=== PATIENT | male | born 1985 | race African-American/Black ===

== ENCOUNTER 2016-11-08 11:37 | Emergency (ER) | payer MEDICAID ==
[~2016-11-08] VITALS: Ht 188 cm; Wt 77.6 kg
[~2016-11-08 11:37] MED LIST: OLAN5TAB3 PO
[2016-11-08 11:41] VITALS: BP 130/61
[2016-11-08] MEDS ORDERED: PROCHLORPERAZINE 5 MG/ML, 2ML IVPush ONE (13:00)
[2016-11-08] MEDS ORDERED: KETOROLAC 30 MG/1 ML IVPush ONE (13:00)
[2016-11-08] MEDS ORDERED: DIPHENHYDRAMINE 50 MG/ML, 1ML IVPush ONE (13:00)
[2016-11-08] MEDS ORDERED: SODIUM CHLORIDE FLUSH 10ML SYR IVF ONE (13:00)
[2016-11-08] MEDS ORDERED: SODIUM CHLORIDE 0.9% 1,000ML IVBOLUS ONE (13:00)
== END 2016-11-08 15:17 | disposition left against medical advice (07) ==
LOC: ED 15:11
DX: R51 Headache (principal); Z53.21 Procedure and treatment not carried out due to patient leaving prior to being seen by health care provider
CPT/HCPCS: 93005; 99281

== ENCOUNTER 2017-02-28 11:05 | Emergency (ER) | payer MEDICAID ==
[~2017-02-28] VITALS: Ht 188 cm; Wt 82.0 kg
[2017-02-28 11:20] VITALS: BP 110/45
== END 2017-02-28 12:22 | disposition home or self-care (01) ==
LOC: ED 12:00
DX: S66.911A Strain of unspecified muscle, fascia and tendon at wrist and hand level, right hand, initial encounter (principal); X58.XXXA Exposure to other specified factors, initial encounter; Y93.89 Activity, other specified; Y92.89 Other specified places as the place of occurrence of the external cause; Y99.9 Unspecified external cause status
CPT/HCPCS: 29125; 99284

== ENCOUNTER 2017-03-11 07:34 | Emergency (ER) | payer MEDICAID ==
[~2017-03-11] VITALS: Ht 193 cm; Wt 75.0 kg
[2017-03-11] MEDS ORDERED: DIPHENHYDRAMINE 50 MG/ML, 1ML IVPush ONE (08:00)
[2017-03-11] MEDS ORDERED: SODIUM CHLORIDE 0.9% 1,000ML IVBOLUS ONE (08:00)
[2017-03-11] MEDS ORDERED: METOCLOPRAMIDE 5 MG/ML, 2ML IVPush ONE (08:00)
[2017-03-11] MEDS ORDERED: SODIUM CHLORIDE FLUSH 10ML SYR IVF ONE (08:00)
[2017-03-11] MEDS ORDERED: KETOROLAC 30 MG/1 ML IVPush ONE (08:00)
[2017-03-11] MEDS ORDERED: DIPHENHYDRAMINE 50 MG/ML, 1ML ONE (08:06)
[2017-03-11] MEDS ORDERED: KETOROLAC 30 MG/1 ML ONE (08:06)
[2017-03-11] MEDS ORDERED: METOCLOPRAMIDE 5 MG/ML, 2ML ONE (08:06)
[2017-03-11 08:47] LABS: HEMATOCRIT 43.1 % (39.2-51.8); HEMOGLOBIN 14.6 g/dL (13.7-18.0); WHITE BLOOD COUNT 6.7 x10^3/uL (3.4-10)
[2017-03-11 09:02] LABS: BLOOD UREA NITROGEN 11 mg/dL (7-18)
[2017-03-11 09:06] LABS: IS PT STATUS REG ER OR PRE ER? YES
[2017-03-11 10:48] VITALS: BP 106/43
== END 2017-03-11 10:50 | disposition home or self-care (01) ==
LOC: ED 09:18
DX: S00.03XA Contusion of scalp, initial encounter (principal); R55 Syncope and collapse; J45.909 Unspecified asthma, uncomplicated; X58.XXXA Exposure to other specified factors, initial encounter; Y93.89 Activity, other specified; Y92.89 Other specified places as the place of occurrence of the external cause; Y99.8 Other external cause status
CPT/HCPCS: 36415; 70450; 71010; 80048; 82040; 84484; 85025; 93005; 96361; 96374; 96375; 99285; J1200; J1885; J2765; J7030

== ENCOUNTER 2018-07-27 14:58 | Emergency (ER) | payer MEDICAID ==
[~2018-07-27] VITALS: Ht 188 cm; Wt 90.3 kg
[2018-07-27 15:14] VITALS: BP 118/60
--- NOTE | 2018-07-27 15:43 | NUR ---
Patient/Caregiver given discharge instructions and they have confirmed that they understand the instructions. Patient ambulatory with steady gait.
== END 2018-07-27 15:45 | disposition home or self-care (01) ==
LOC: ED 15:25
DX: J00 Acute nasopharyngitis [common cold] (principal); J45.909 Unspecified asthma, uncomplicated; Z87.891 Personal history of nicotine dependence
CPT/HCPCS: 99283

== ENCOUNTER 2018-10-16 02:38 | Emergency (ER) | payer MEDICAID ==
[2018-10-16 02:45] VITALS: BP 113/42
--- NOTE | 2018-10-16 02:49 | NUR ---
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
[2018-10-16] MEDS ORDERED: IBUPROFEN 200 MG TABLET ONE (02:52)
[2018-10-16] MEDS ORDERED: ACETAMINOPHEN 500 MG TABLET ONE (02:52)
[2018-10-16] MEDS ORDERED: IBUPROFEN 600 MG TABLET ONE (02:53)
[2018-10-16] MEDS ORDERED: IBUPROFEN 600 MG TABLET PO ONE (03:00)
[2018-10-16] MEDS ORDERED: ACETAMINOPHEN 500 MG TABLET PO ONE (03:00)
--- NOTE | 2018-10-16 03:25 | NUR ---
given dc instruction with work note pt understood pt up ambulated to check out
== END 2018-10-16 03:27 | disposition home or self-care (01) ==
LOC: ED 03:25
DX: R07.89 Other chest pain (principal); J45.909 Unspecified asthma, uncomplicated; F17.200 Nicotine dependence, unspecified, uncomplicated
CPT/HCPCS: 71045; 93005; 99283

== ENCOUNTER 2018-12-03 21:47 | Emergency (ER) | payer MEDICAID ==
[~2018-12-03] VITALS: Ht 188 cm; Wt 76.8 kg
[2018-12-03 21:50] VITALS: BP 116/69
--- NOTE | 2018-12-03 22:44 | NUR ---
DC EDUCATION PROVIDED, PT DEMONSTRATES UNDERSTANDING. PT AMBULATED STEADILY TO DC WITH RN
== END 2018-12-03 22:45 | disposition home or self-care (01) ==
LOC: ED 22:39
DX: H57.89 Other specified disorders of eye and adnexa (principal); F17.210 Nicotine dependence, cigarettes, uncomplicated
CPT/HCPCS: 99283

== ENCOUNTER 2019-01-10 23:59 | Emergency (ER) | payer MEDICAID ==
[~2019-01-10] VITALS: Ht 188 cm; Wt 77.5 kg
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
--- NOTE | 2019-01-11 00:14 | NUR ---
Provider at bedside, ERICK RANDALL, pain and nausea resolved at this time, urinal provided for UA, pt to notify RN when specimen is available.
[2019-01-11] MEDS ORDERED: SODIUM CHLORIDE FLUSH 10ML SYR IVF ONE (00:30)
[2019-01-11 00:39] LABS: BASOPHILS % (AUTO) 0 % (0-1); EOSINOPHILS # (AUTO) 0.03 x10^3/uL (0-0.4); EOSINOPHILS % (AUTO) 1 % (1-7); LYMPHOCYTES # (AUTO) 0.97 x10^3/uL (1-3.4); LYMPHOCYTES % (AUTO) 17 % (22-44); MD NO; MEAN CORPUSCULAR HEMOGLOBIN 32.6 pg (27.5-34.5); MEAN CORPUSCULAR VOLUME 98.8 fL (81-97); MEAN PLATELET VOLUME 7.7 fL (7.4-10.4); MONOCYTES # (AUTO) 0.15 x10^3/uL (0.2-0.8); MONOCYTES % (AUTO) 3 % (2-9); NEUTROPHILS # (AUTO) 4.65 x10^3/uL (1.8-6.8); NEUTROPHILS % (AUTO) 80 % (42-75); PLATELET COUNT 224 x10^3/uL (130-400); RED BLOOD COUNT 4.73 x10^6/uL (4.38-5.82); RED CELL DISTRIBUTION WIDTH 16.5 % (9.4-14.8)
[2019-01-11 00:44] LABS: ALANINE AMINOTRANSFERASE 20 U/L (12-78); ALBUMIN 4.1 g/dL (3.4-5.0); ANION GAP 8 mmol/L (5-15); CALCIUM 8.7 mg/dL (8.5-10.1); CHLORIDE 108 mmol/L (98-107); CREATININE 0.93 mg/dL (0.7-1.3)
[2019-01-11 00:46] LABS: ALKALINE PHOSPHATASE 60 U/L (45-117); BILIRUBIN,TOTAL 0.7 mg/dL (0.2-1.0); TOTAL PROTEIN 7.9 g/dL (6.4-8.2)
--- NOTE | 2019-01-11 01:02 | NUR ---
Pt attempts to void, unsuccessful. notified.
--- NOTE | 2019-01-11 01:33 | NUR ---
Pt resting w/ eyes closed, arouses to voice. Unable to void, PO fluids provided, will attempt UA collection. aware.
--- NOTE | 2019-01-11 02:10 | NUR ---
Pt unable to void, provider aware. Report given to Jose MARI.
[2019-01-11] MEDS ORDERED: KETOROLAC 30 MG/1 ML ONE (02:24)
[2019-01-11] MEDS ORDERED: ONDANSETRON 2MG/ML, 2ML ONE (02:24)
[2019-01-11] MEDS ORDERED: KETOROLAC 30 MG/1 ML IVPush ONE (02:30)
[2019-01-11] MEDS ORDERED: ONDANSETRON 2MG/ML, 2ML IVPush ONE (02:30)
[2019-01-11] MEDS ORDERED: SODIUM CHLORIDE 0.9% 1,000ML IVBOLUS ONE (02:30)
--- NOTE | 2019-01-11 02:36 | NUR ---
PT ABLE TO VOID IN URINAL. SAMPLE COLLECTED AND WALKED TO LAB. ORDERED FLUIDS AND MEDS GIVEN.
[2019-01-11 02:48] LABS: MICROSCOPIC AUTO
[2019-01-11 02:50] LABS: CULTURE INDICATED? YES
[2019-01-11 04:02] VITALS: BP 102/46
== END 2019-01-11 04:21 | disposition home or self-care (01) ==
LOC: ED 01-11 00:27
DX: N13.2 Hydronephrosis with renal and ureteral calculous obstruction (principal); R31.9 Hematuria, unspecified; R11.2 Nausea with vomiting, unspecified; F17.210 Nicotine dependence, cigarettes, uncomplicated; J45.909 Unspecified asthma, uncomplicated
CPT/HCPCS: 36415; 74176; 80053; 80307; 81001; 83690; 85025; 87086; 96361; 96374; 96375; 99284; J1885; J2405; J7030

== ENCOUNTER 2019-01-24 22:24 | Emergency (ER) | payer MEDICAID ==
[~2019-01-24] VITALS: Ht 185.4 cm; Wt 74.4 kg
[2019-01-24 22:29] VITALS: BP 116/74
== END 2019-01-24 22:52 | disposition left against medical advice (07) ==
LOC: ED 22:45
DX: F41.9 Anxiety disorder, unspecified (principal); Z53.21 Procedure and treatment not carried out due to patient leaving prior to being seen by health care provider

== ENCOUNTER 2019-10-24 21:49 | Observation (INO) | payer MEDICAID ==
[~2019-10-24] VITALS: Ht 188 cm; Wt 74.0 kg
[~2019-10-24 21:49] MED LIST changes: +GABAPENTIN
--- NOTE | 2019-10-24 22:09 | NUR ---
PT AMBUALTES FROM TRIAGE TO ROOM WITH SLOW BUT STEADY GAIT WITH ASSISTANCE FROM CANE.
[2019-10-24] MEDS ORDERED: SODIUM CHLORIDE 0.9% 1,000ML IVBOLUS ONE (22:30)
[2019-10-24] MEDS ORDERED: MORPHINE SULFATE 4 MG/ML, 1ML IV PRN (22:30)
[2019-10-24] MEDS ORDERED: ONDANSETRON 2MG/ML, 2ML IVPush ONE (22:30)
[2019-10-24] MEDS ORDERED: CEFAZOLIN PMX 1GM/50ML 50 ML IVPB ONE (22:30)
[2019-10-24] MEDS ORDERED: SODIUM CHLORIDE FLUSH 10ML SYR IVF ONE (22:30)
[2019-10-24] MEDS ORDERED: VANCOMYCIN PER PHARMACY MC ONE (22:30)
[2019-10-24] MEDS ORDERED: ONDANSETRON 2MG/ML, 2ML ONE (22:46)
[2019-10-24] MEDS ORDERED: MORPHINE SULFATE 4 MG/ML, 1ML ONE (22:46)
--- NOTE | 2019-10-24 22:55 | NUR ---
LAB IN ROOM DRAWING BLOOD CULTURES
[2019-10-24] MEDS ORDERED: CEFAZOLIN PMX 1GM/50ML 50 ML ONE (22:59)
[2019-10-24] MEDS ORDERED: VANCOMYCIN 1,500 MG in SODIUM CHLORIDE 0.9% 250 ML IV ONE (23:00)
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
[2019-10-24 23:19] LABS: BASOPHILS # (AUTO) 0.03 x10^3/uL (0-0.1); BASOPHILS % (AUTO) 0 % (0-1); EOSINOPHILS # (AUTO) 0.03 x10^3/uL (0-0.4); EOSINOPHILS % (AUTO) 1 % (1-7); LYMPHOCYTES # (AUTO) 0.98 x10^3/uL (1-3.4); LYMPHOCYTES % (AUTO) 13 % (22-44); MD NO; MEAN CORPUSCULAR HEMOGLOBIN 31.6 pg (27.5-34.5); MEAN CORPUSCULAR HGB CONC 33.6 g/dL (33.2-36.2); MEAN CORPUSCULAR VOLUME 94.2 fL (81-97); MEAN PLATELET VOLUME 6.6 fL (7.4-10.4); MONOCYTES % (AUTO) 4 % (2-9); NEUTROPHILS # (AUTO) 6.28 x10^3/uL (1.8-6.8); NEUTROPHILS % (AUTO) 82 % (42-75); PLATELET COUNT 523 x10^3/uL (130-400); RED BLOOD COUNT 3.57 x10^6/uL (4.38-5.82); RED CELL DISTRIBUTION WIDTH 15.6 % (9.4-14.8)
[2019-10-24 23:22] LABS: ALBUMIN 3.6 g/dL (3.4-5.0); ANION GAP 7 mmol/L (5-15); C-REACTIVE PROTEIN, QUANT 0.88 mg/dL (0.02-0.49); CALCIUM 9.2 mg/dL (8.5-10.1); CHLORIDE 105 mmol/L (98-107); CREATININE 0.83 mg/dL (0.7-1.3)
[2019-10-24 23:59] LABS: HCT (SEDRATE) 33.6 % (39.2-51.8)
--- NOTE | 2019-10-25 00:40 | NUR ---
PT RESTING IN ROOM. NO ACUTE DISTRESS NOTED. VS STABLE. CALL LIGHT IN PLACE. WILL CONTINUE TO MONITOR.
--- NOTE | 2019-10-25 01:08 | NUR ---
PT RESTING IN ROOM. VS STABLE. CALL LIGHT IN PLACE. WILL CONTINUE TO MONITOR.
--- NOTE | 2019-10-25 01:10 | NUR ---
REPORT OF PT FROM JACEY ANDREWS, AND ASSUMING CARE OF PT AT THIS TIME. PT RESTING IN [facility] AT THIS TIME; NADN. CALL LIGHT IS WITHIN REACH.
--- NOTE | 2019-10-25 01:30 | NUR ---
BEDSIDE REPORT GIVEN TO JACEY MCLEAN
[2019-10-25 03:05] VITALS: BP 105/55
[2019-10-25] MEDS ORDERED: morphine SULFATE 10 MG/ML, 1ML IVPush PRN (03:30)
[2019-10-25] MEDS ORDERED: PHARMACOKINETIC MONITORING MC PRN (03:30)
[2019-10-25] MEDS ORDERED: PHARMACOKINETIC CONSULTATION MC ONE (03:30)
[2019-10-25] MEDS ORDERED: ONDANSETRON 2MG/ML, 2ML IVPush PRN (03:30)
[2019-10-25] MEDS ORDERED: VANCOMYCIN PER PHARMACY MC PRN (03:30)
[2019-10-25] MEDS ORDERED: ACETAMINOPHEN 325 MG TABLET PO PRN (03:30)
[2019-10-25] MEDS ORDERED: QUET300T5 PO (03:53)
[2019-10-25] MEDS ORDERED: DIPHENHYDRAMINE 50 MG/ML, 1ML IVPush ONE (04:00)
[2019-10-25] MEDS: CEFAZOLIN PMX 1GM/50ML 50 ML IV SCH ×3 (05:52→21:59)
[2019-10-25 08:00] VITALS: BP 108/68
[2019-10-25] MEDS: VANCOMYCIN 1,400 MG in SODIUM CHLORIDE 0.9% 250 ML IV SCH ×2 (11:11→22:50)
[2019-10-25 14:00] VITALS: BP 104/66
[2019-10-25 20:46] VITALS: BP 110/63
[2019-10-26 02:16] VITALS: BP 98/60
[2019-10-26] MEDS: CEFAZOLIN PMX 1GM/50ML 50 ML IV SCH ×3 (05:45→22:17)
[2019-10-26 05:55] LABS: MEAN CORPUSCULAR HEMOGLOBIN 31.3 pg (27.5-34.5); MEAN CORPUSCULAR HGB CONC 32.7 g/dL (33.2-36.2); MEAN CORPUSCULAR VOLUME 95.8 fL (81-97); MEAN PLATELET VOLUME 6.7 fL (7.4-10.4); PLATELET COUNT 441 x10^3/uL (130-400); RED BLOOD COUNT 3.47 x10^6/uL (4.38-5.82); RED CELL DISTRIBUTION WIDTH 15.4 % (9.4-14.8)
[2019-10-26 06:03] LABS: ANION GAP 5 mmol/L (5-15); C-REACTIVE PROTEIN, QUANT 0.78 mg/dL (0.02-0.49); CALCIUM 8.8 mg/dL (8.5-10.1); CHLORIDE 108 mmol/L (98-107); CREATININE 0.76 mg/dL (0.7-1.3)
[2019-10-26 06:11] LABS: HCT (SEDRATE) 33.2 % (39.2-51.8)
[2019-10-26 06:40] LABS: BASOPHILS # (AUTO) 0.05 x10^3/uL (0-0.1); BASOPHILS % (AUTO) 1 % (0-1); EOSINOPHILS % (AUTO) 2 % (1-7); LYMPHOCYTES # (AUTO) 1.86 x10^3/uL (1-3.4); LYMPHOCYTES % (AUTO) 44 % (22-44); MD SCAN; MONOCYTES # (AUTO) 0.66 x10^3/uL (0.2-0.8); MONOCYTES % (AUTO) 16 % (2-9); NEUTROPHILS # (AUTO) 1.56 x10^3/uL (1.8-6.8); NEUTROPHILS % (AUTO) 37 % (42-75)
[2019-10-26 09:00] VITALS: BP 114/71
[2019-10-26] MEDS: VANCOMYCIN 1,400 MG in SODIUM CHLORIDE 0.9% 250 ML IV SCH ×2 (10:20→23:10)
[2019-10-26 14:00] VITALS: BP 107/62
[2019-10-26 18:56] VITALS: BP 101/67
[2019-10-27 01:33] VITALS: BP 107/66
[2019-10-27 05:19] LABS: BASOPHILS # (AUTO) 0.06 x10^3/uL (0-0.1); BASOPHILS % (AUTO) 2 % (0-1); EOSINOPHILS # (AUTO) 0.09 x10^3/uL (0-0.4); EOSINOPHILS % (AUTO) 2 % (1-7); LYMPHOCYTES # (AUTO) 1.96 x10^3/uL (1-3.4); LYMPHOCYTES % (AUTO) 53 % (22-44); MD NO; MEAN CORPUSCULAR HGB CONC 32.7 g/dL (33.2-36.2); MEAN CORPUSCULAR VOLUME 94.9 fL (81-97); MEAN PLATELET VOLUME 7.2 fL (7.4-10.4); MONOCYTES # (AUTO) 0.61 x10^3/uL (0.2-0.8); MONOCYTES % (AUTO) 17 % (2-9); NEUTROPHILS # (AUTO) 0.98 x10^3/uL (1.8-6.8); NEUTROPHILS % (AUTO) 26 % (42-75); PLATELET COUNT 452 x10^3/uL (130-400); RED BLOOD COUNT 3.65 x10^6/uL (4.38-5.82); RED CELL DISTRIBUTION WIDTH 15.8 % (9.4-14.8)
[2019-10-27] MEDS: CEFAZOLIN PMX 1GM/50ML 50 ML IV SCH ×2 (05:27→13:51)
[2019-10-27 05:36] LABS: ANION GAP 6 mmol/L (5-15); CALCIUM 8.8 mg/dL (8.5-10.1); CHLORIDE 108 mmol/L (98-107)
[2019-10-27 05:39] LABS: CREATININE 0.82 mg/dL (0.7-1.3)
[2019-10-27 07:54] VITALS: BP 102/64
[2019-10-27] MEDS ORDERED: VANCOMYCIN 1,500 MG in SODIUM CHLORIDE 0.9% 250 ML IV SCH (10:00)
[2019-10-27] MEDS ORDERED: POTASSIUM CHLORIDE 10 MEQ in SODIUM CHLORIDE 0.9% 1,000 ML IV SCH (11:00)
[2019-10-27] MEDS ORDERED: AMOX1TAB64 PO (16:39)
== END 2019-10-27 14:33 | disposition left against medical advice (07) ==
LOC: ED 23:09 → EDIP 10-25 00:51 → OBSVTOIN 10-25 00:51 → INTOOBSV 10-25 00:51 → 4NE 10-25 02:54
PROVIDERS: ATTEND Hospitalist
DX: S82.101A Unspecified fracture of upper end of right tibia, initial encounter for closed fracture (principal); D64.9 Anemia, unspecified; F43.10 Post-traumatic stress disorder, unspecified; F17.200 Nicotine dependence, unspecified, uncomplicated; F31.9 Bipolar disorder, unspecified; F10.20 Alcohol dependence, uncomplicated; J45.909 Unspecified asthma, uncomplicated; L03.115 Cellulitis of right lower limb; M86.161 Other acute osteomyelitis, right tibia and fibula; F20.9 Schizophrenia, unspecified; Z91.14 Patient's other noncompliance with medication regimen; Z79.899 Other long term (current) drug therapy
CPT/HCPCS: 36415; 73590; 73721; 80048; 80202; 82040; 85025; 85651; 86140; 87040; 96365; 96366; 96367; 96375; 97162; 97165; 99285; G0378; J0690; J1200; J2270; J2405; J3370; J3480; J7030; J7050

== ENCOUNTER 2019-11-24 13:23 | Emergency (ER) | payer MEDICAID ==
[~2019-11-24] VITALS: Ht 188 cm; Wt 68.0 kg
[~2019-11-24 13:23] MED LIST changes: +AMOX1TAB64 PO; +QUET300T5 PO
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
[2019-11-24 14:13] LABS: MEAN CORPUSCULAR HEMOGLOBIN 30.6 pg (27.5-34.5); MEAN CORPUSCULAR HGB CONC 32.5 g/dL (33.2-36.2); MEAN CORPUSCULAR VOLUME 94.1 fL (81-97); PLATELET COUNT 280 x10^3/uL (130-400); RED CELL DISTRIBUTION WIDTH 15.4 % (9.4-14.8)
[2019-11-24 14:17] LABS: ALANINE AMINOTRANSFERASE 22 U/L (12-78); ALBUMIN 3.8 g/dL (3.4-5.0); ANION GAP 3 mmol/L (5-15); CALCIUM 9.5 mg/dL (8.5-10.1); CHLORIDE 104 mmol/L (98-107); CREATININE 0.95 mg/dL (0.7-1.3)
[2019-11-24 14:19] LABS: ALKALINE PHOSPHATASE 125 U/L (45-117); BILIRUBIN,TOTAL 0.2 mg/dL (0.2-1.0); TOTAL PROTEIN 7.9 g/dL (6.4-8.2)
[2019-11-24 14:28] VITALS: BP 97/51
--- NOTE | 2019-11-24 14:29 | NUR ---
PT RESTING IN [facility]. NAD. VSS
[2019-11-24 14:32] LABS: BASOPHILS # (AUTO) 0.04 x10^3/uL (0-0.1); BASOPHILS % (AUTO) 1 % (0-1); EOSINOPHILS # (AUTO) 0.11 x10^3/uL (0-0.4); EOSINOPHILS % (AUTO) 3 % (1-7); LYMPHOCYTES # (AUTO) 1.64 x10^3/uL (1-3.4); LYMPHOCYTES % (AUTO) 39 % (22-44); MD SCAN; MONOCYTES # (AUTO) 0.21 x10^3/uL (0.2-0.8); MONOCYTES % (AUTO) 5 % (2-9); NEUTROPHILS # (AUTO) 2.17 x10^3/uL (1.8-6.8); NEUTROPHILS % (AUTO) 52 % (42-75)
--- NOTE | 2019-11-24 16:03 | NUR ---
PT ASKED TO URINATE IN A BOTTLE UPON DISCHARGE. PT WAS TOLD HE MAY USE THE BATHROOM ON THE WAY OUT. PT WENT THROUGH CABINET AND FOUND A URINAL AND URINATED IN IT. PT WAS UPSET HE WASNT GIVEN A URINAL CRACKERS GIVEN
== END 2019-11-24 16:06 | disposition home or self-care (01) ==
LOC: ED 14:24
DX: S82.191D Other fracture of upper end of right tibia, subsequent encounter for closed fracture with routine healing (principal); Z91.19 Patient's noncompliance with other medical treatment and regimen; J45.909 Unspecified asthma, uncomplicated; F17.290 Nicotine dependence, other tobacco product, uncomplicated; X58.XXXD Exposure to other specified factors, subsequent encounter
CPT/HCPCS: 36415; 80053; 85025; 99284

== ENCOUNTER 2020-11-28 13:34 | Emergency (ER) | payer MEDICAID ==
[~2020-11-28] VITALS: Ht 188 cm; Wt 67.0 kg
[2020-11-28 13:38] VITALS: BP 141/90
== END 2020-11-28 14:07 | disposition home or self-care (01) ==
LOC: ED 13:42
DX: Z48.01 Encounter for change or removal of surgical wound dressing (principal); J45.909 Unspecified asthma, uncomplicated; F17.210 Nicotine dependence, cigarettes, uncomplicated
CPT/HCPCS: 99281